=== PATIENT | female | born 1995 | race African-American/Black ===

== ENCOUNTER 2017-02-18 15:30 | Emergency (ER) | payer OTHER ==
[~2017-02-18] VITALS: Ht 160 cm; Wt 61.2 kg
[2017-02-18 15:31] VITALS: BP 136/69
[2017-02-18] MEDS ORDERED: PRENTAB40 PO (15:46)
[2017-02-18] MEDS ORDERED: MAGICMW SSP (17:59)
== END 2017-02-18 18:10 | disposition home or self-care (01) ==
LOC: M ED 18:01
DX: J02.9 Acute pharyngitis, unspecified (principal)

== ENCOUNTER 2017-03-18 18:14 | Emergency (ER) | payer OTHER ==
[~2017-03-18] VITALS: Ht 160 cm; Wt 59.0 kg
[~2017-03-18 18:14] MED LIST: MAGICMW SSP; PRENTAB40 PO
[2017-03-18] MEDS ORDERED: ZOFR4TAB3 PO (20:07)
[2017-03-18] MEDS ORDERED: ONDANSETRON 4 MG ORAL DISINTEGRATING TAB (S0181) PO ONE (20:15)
[2017-03-18 20:34] VITALS: BP 129/82
== END 2017-03-18 20:35 | disposition home or self-care (01) ==
LOC: M ED 20:15
DX: N93.9 Abnormal uterine and vaginal bleeding, unspecified (principal)